=== PATIENT | female | born 1965 | race Caucasian/White ===

== ENCOUNTER 2022-12-17 20:55 | Inpatient (IN) | payer MEDICAID, SELFPAY ==
[2022-12-17] VITALS (13 sets, daily range): BP systolic 118–231; BP diastolic 90–132; PULSE 61–76; RESP 15–16; TEMP 36.4; O2SAT 95–100; BMI 15.0; BMI 14.8
--- NOTE | 2022-12-17 21:11 | PC.NURSE ---
Pt arrived to floor via stretcher @ 2056
--- NOTE | 2022-12-17 21:30 | ECG_ITS ---
APPROVED REPORT Exam: Resting ECG HR:74 bpm ECG Measurements Heart Rate 74 AXES TN 148 P 75 QRSd 84 QRS 69 QT 473 T 101 QTc 501 Conclusion SINUS RHYTHM POSSIBLE LEFT ATRIAL ENLARGEMENT [-0.1mV P-WAVE IN V1/V2] POSSIBLE LEFT VENTRICULAR HYPERTROPHY [VOLTAGE CRITERIA PLUS LAE OR QRS WIDENING] POSSIBLE SEPTAL MYOCARDIAL INFARCTION , OF INDETERMINATE AGE [30 ms Q WAVE IN V1/V2] MODERATE T-WAVE ABNORMALITY, CONSIDER ANTERIOR ISCHEMIA [-0.1+ mV T-WAVE IN V3/V4] ABNORMAL ECG UNCONFIRMED REPORT Electronically signed by : Arden Astudillo MD 12/18/2022 06:44:19
[2022-12-17 22:02] LABS: Basophils % 0.3 % (0.1-2.0); Eosinophils % 0.4 % (0.1-12.0); Hematocrit 36.9 % (37.0-47.0); Hemoglobin 11.6 g/dL (12.2-16.2); Lymphocytes # 0.9 K/mm3 (0.7-4.5); Mean Corpuscular HGB Conc 31.5 g/dL (31.8-35.4); Mean Corpuscular Hemoglobin 32.6 pg (27.0-31.2); Mean Corpuscular Volume 103.6 fl (81-99); Monocytes # 0.2 K/mm3 (0.1-1.0); Monocytes % 2.6 % (1.7-9.3); Neutrophils # 7.6 K/mm3 (1.8-7.8); Neutrophils % 86.7 % (37.0-80.0); Platelet Count 183 K/mm3 (142-424); Red Blood Count 3.56 M/mm3 (4.20-5.40); Red Cell Distribution Width 14.1 % (11.5-17.5); White Blood Count 8.8 K/mm3 (4.8-10.8)
[2022-12-17 22:03] LABS: MANUAL DIFFERENTIAL MANUAL DIFFERENTIAL (MANUAL DIFF)
[2022-12-17 22:15] LABS: Lymphocytes % 7 % (10-50); Neutrophils % 93 % (42-76); Platelet Estimate Normal; RBC Morphology Normal; Total Cells Counted 100
[2022-12-17 22:17] LABS: Alanine Aminotransferase 33 U/L (12-78); Albumin/Globulin Ratio 1.2 (1.1-1.8); Alkaline Phosphatase 145 U/L (38-126); Aspartate Amino Transferase 101 U/L (14-36); Bilirubin,Total 0.5 mg/dl (0.2-1.3); Blood Urea Nitrogen 18 mg/dl (7-17); Calcium 8.8 mg/dl (8.4-10.2); Carbon Dioxide 23 mmol/L (22.0-30.0); Chloride 103 mmol/L (98-107); Estimated Glomerular Filt Rate 86 ml/min (>60); GFR (African American) 104 ML/MIN (>60); Globulin 3.4 g/dL (1.3-3.2); Glucose 178 mg/dl (74-100); Magnesium 1.7 mg/dl (1.6-2.3); Sodium 137 mmol/L (136-145); Total Protein,Serum 7.4 g/dl (6.3-8.2)
[2022-12-17 22:18] LABS: PTT Heparin (inpatient only) 56.4 Seconds (23.6-34.0)
[2022-12-17 22:25] LABS: NT Pro Brain Natriuretic Pep. 1370 pg/mL (0-125)
[2022-12-17 22:31] LABS: Troponin I 3.65 ng/ml (0.00-0.034)
[2022-12-17 22:49] LABS: Coronavirus 19, PCR Not Detected (NotDetected); Influenza A, PCR Not Detected (NotDetected); Influenza B, PCR Not Detected (NotDetected)
--- NOTE | 2022-12-17 22:52 | EXP.HP ---
History of Present Illness *Admission Date: 12/17/22 *Reason for visit:: NSTEMI *History of present illness: 57 year old female who presented to [facility] ED for c/o CP. The pain started @ 245pm. PMHX of CAD, tobacco abuse, hypothyroidism, and COPD. Pt had prior CABG in 2018. Patient states pain started while working today. Pt left work and went to the ED. Pain is described as sharp and started mid chest. Pain radiated to her back between both shoulder blades, down bilateral arms, and up bilateral jaws. Upon the ED workup the patient's BP was 192/105 and her first troponin was 38. The 2hr repeat troponin was 335. BNP was 92 and TSH was 8.20. COVID negative. The patient was started on a nitroglycerin and heparin gtt. [facility] ED physician (Dr. Nunes) called Dr. Nails for transfer of care. Dr. Nails called Dr. Mcclellan and the pt was accepted at [facility] for medical management of NSTEMI with cardiology consult. The patient takes 325 aspirin at home. Pt was given Brilitna 180mg, 40 mg protonix, 20 pepcid, 5 Lopressor, and 25 of metoprolol at [facility] ED. [facility] Disclaimer: The information contained in this section may have been updated after the patient was seen, as this information can be updated by other users. Medical History (Updated 12/17/22 @ 23:40 by MARIE Wilson) COPD (chronic obstructive pulmonary disease) Coronary artery disease involving coronary bypass graft Hemorrhoid History of COVID-19 Hypothyroid Social History (Updated 12/17/22 @ 21:59 by Mini Jackson RN) Smoking Status: Current every day smoker alcohol intake: never current occupational status: employed Travel in the last 8 weeks: None Review of Systems Review of Systems Review of systems:: pertinent systems reviewed and negative unless documented below Constitutional Constitutional: Reports system reviewed and no additional complaints, except as documented Eyes Eyes: Reports system reviewed and no additional complaints, except as documented ENT Ears, Nose, Mouth, and Throat: Reports system reviewed and no additional complaints, except as documented *Cardiovascular Cardiovascular: Reports chest pain and Reports chest pain at rest *Respiratory Respiratory: Reports system reviewed and no additional complaints, except as documented *Gastrointestinal Gastrointestinal: Reports system reviewed and no additional complaints, except as documented *Genitourinary Genitourinary: Reports system reviewed and no additional complaints, except as documented *Musculoskeletal Musculoskeletal: Reports system reviewed and no additional complaints, except as documented Integumentary/Breasts Skin/Breast: Reports system reviewed and no additional complaints, except as documented *Neurologic Neurologic: Reports system reviewed and no additional complaints, except as documented Psychiatric Psychiatric: Reports system reviewed and no additional complaints, except as documented Meds Home Medications and Allergies Home Medications Medication Instructions Recorded Confirmed Type albuterol sulfate 90 mcg/actuation See Rx Instructions .Route 12/17/22 12/17/22 History aerosol inhaler (Ventolin HFA) .COMPLEX COPD aspirin 325 mg tablet 325 mg PO DAILY CAD 12/17/22 12/17/22 History fluticasone 250 mcg-salmeterol 50 See Rx Instructions .Route 12/17/22 12/17/22 History mcg/dose blistr powdr for .COMPLEX COPD inhalation (Advair Diskus) levothyroxine 88 mcg tablet 88 mcg PO DAILY Hypothyroid 12/17/22 12/17/22 History tiotropium bromide 18 mcg capsule See Rx Instructions .Route 12/17/22 12/17/22 History with inhalation device (Spiriva .COMPLEX COPD with HandiHaler) trazodone 150 mg tablet 150 mg PO HS Insomnia 12/17/22 12/17/22 History New Prescriptions to Start Prescriptions: Allergies Allergy/AdvReac Type Severity Reaction Status Date / Time sulfamethoxazole Allergy Verified 12/17/22 22:14 [From Bactrim] trimethoprim [From Bactrim] Miguel Ángel
[2022-12-18] VITALS (24 sets, daily range): BP systolic 112–203; BP diastolic 72–114; PULSE 59–90; RESP 12–20; TEMP 36.6–37.1; O2SAT 96–100; BMI 15.0
[2022-12-18 00:10] LABS: Free T4 (Free Thyroxine) 1.86 ng/dl (0.78-2.19)
--- NOTE | 2022-12-18 03:25 | ECG_ITS ---
APPROVED REPORT Exam: Resting ECG HR:69 bpm ECG Measurements Heart Rate 69 AXES VA 144 P 78 QRSd 78 QRS 68 QT 473 T 102 QTc 492 Conclusion SINUS RHYTHM POSSIBLE LEFT ATRIAL ENLARGEMENT [-0.1mV P-WAVE IN V1/V2] LEFT VENTRICULAR HYPERTROPHY AND ST-T CHANGE [VOLTAGE CRITERIA PLUS ST/T ABNORMALITY] POSSIBLE SEPTAL MYOCARDIAL INFARCTION , OF INDETERMINATE AGE [30 ms Q WAVE IN V1/V2] ABNORMAL ECG UNCONFIRMED REPORT Electronically signed by : Arden Astudillo MD 12/18/2022 06:44:11
[2022-12-18 04:40] LABS: PTT Heparin (inpatient only) 53.8 Seconds (23.6-34.0)
--- NOTE | 2022-12-18 06:01 | XR_ITS ---
PROCEDURE INFORMATION: Exam: XR Chest Exam date and time: 12/18/2022 5:46 AM Age: 57 years old Clinical indication: Pain; Chest pressure; Additional info: Nstemi TECHNIQUE: Imaging protocol: Radiologic exam of the chest. Views: 1 view. COMPARISON: No relevant prior studies available. FINDINGS: Lungs: Opacities in the right perihilar region and medial right base may represent atelectasis or pneumonia.. Pleural spaces: Unremarkable. No pleural effusion. No pneumothorax. Heart/Mediastinum: Unremarkable. No cardiomegaly. Bones/joints: Median sternotomy IMPRESSION: Opacities in the right perihilar region and medial right base may represent atelectasis or pneumonia..
[2022-12-18 07:06] LABS: Chloride 102 mmol/L (98-107); Sodium 136 mmol/L (136-145)
[2022-12-18 07:09] LABS: Blood Urea Nitrogen 16 mg/dl (7-17); Calcium 8.9 mg/dl (8.4-10.2); Carbon Dioxide 25 mmol/L (22.0-30.0); Creatinine Clearance Estimated 53 mL/min (50-200); Estimated Glomerular Filt Rate 86 ml/min (>60); GFR (African American) 104 ML/MIN (>60); Glucose 85 mg/dl (74-100)
[2022-12-18 07:15] LABS: Basophils % 0.2 % (0.1-2.0); Eosinophils # 0.1 K/mm3 (0.0-0.4); Eosinophils % 0.7 % (0.1-12.0); Hematocrit 34.6 % (37.0-47.0); Hemoglobin 11.2 g/dL (12.2-16.2); Lymphocytes # 1.3 K/mm3 (0.7-4.5); Mean Corpuscular HGB Conc 32.3 g/dL (31.8-35.4); Mean Corpuscular Hemoglobin 32.5 pg (27.0-31.2); Mean Corpuscular Volume 100.6 fl (81-99); Monocytes # 0.5 K/mm3 (0.1-1.0); Monocytes % 5.8 % (1.7-9.3); Neutrophils # 6.6 K/mm3 (1.8-7.8); Neutrophils % 78.3 % (37.0-80.0); Platelet Count 187 K/mm3 (142-424); Red Blood Count 3.44 M/mm3 (4.20-5.40); White Blood Count 8.4 K/mm3 (4.8-10.8)
--- NOTE | 2022-12-18 09:01 | HMH.PHAHEP ---
[facility] Heparin Dosing Demographic Data Admission date:: 12/17/22 Date: 12/18/22 Time: 09:01 Allergies Allergy/AdvReac Type Severity Reaction Status Date / Time sulfamethoxazole Allergy Verified 12/17/22 22:14 [From Bactrim] trimethoprim [From Bactrim] Allergy Verified 12/17/22 22:14 Height: 1.6 m Weight: 38.584 kg Indication Medication therapy:: Heparin Current Indications:: NSTEMI (LOW-DOSE PROTOCOL) Current Active Problems (Updated 12/19/22 @ 09:39 by Belinda Rodas APRN) Hyperlipidemia (Acute) HTN (hypertension) (Acute) Tobacco abuse (Acute) NSTEMI (non-ST elevated myocardial infarction) (Acute) Hypothyroid (Acute) Coronary artery disease involving coronary bypass graft (Acute) COPD (chronic obstructive pulmonary disease) (Acute) CVA?: No Bleeding problem?: No Kidney disease?: No UT?: Yes Additional History:: NSTEMI, HYPOTHYROID, CAD WITH CABG, COPD Desired PTT range:: 50-75 seconds Labs Anticoagulation Lab Results:: 12/17/22 12/18/22 21:55 06:44 Hgb 11.6 L 11.2 L Hct 36.9 L 34.6 L Plt Count 183 187 Monitoring Dose Monitor 1: Date: 12/17/22 Time: 22:49 PTT Result:: 56.4 SECONDS (TRANSFERRED FROM [facility] ON HEPARIN) Infusion Rate:: FERCHO STARTED HEPARIN DRIP AT 500 UNITS/HOUR = 10 ML/HOUR AND GAVE ONE TIME HEPARIN IV BOLUS OF 2500 UNITS. Dose Monitor 2: Date: 12/18/22 Time: 04:25 PTT Result:: 53.8 SECONDS Infusion Rate:: CONTINUE CURRENT HEPARIN DRIP RATE OF 500 UNITS/HOUR = 10 ML/HOUR Dose Monitor 3: Date: 12/18/22 Time: 11:00 PTT Result:: 34.6 SECONDS Infusion Rate:: INCREASE HEPARIN DRIP RATE TO 650 UNITS/HOUR = 13 ML/HOUR AND BOLUS 4000 UNITS HEPARIN IV ONCE. Dose Monitor 4: Date: 12/18/22 Time: 18:00 PTT Result:: 64.4 SECONDS Infusion Rate:: FERCHO CONTINUED CURRENT HEPARIN DRIP RATE OF 650 UNITS/HOUR = 13 ML/HOUR. Dose Monitor 5: Date: 12/19/22 Time: 00:00 PTT Result:: 43.6 SECONDS Infusion Rate:: FERCHO INCREASED HEPARIN DRIP RATE TO 750 UNITS/HOUR = 15 ML/HOUR AND BOLUSED 3000 UNITS HEPARIN IV ONCE. Dose Monitor 6: Date: 12/19/22 Time: 07:32 PTT Result:: 68.3 SECONDS Infusion Rate:: CONTINUE CURRENT RATE OF 750 UNITS/HOUR = 15 ML/HOUR Comment:: PATIENT TAKEN TO PRODUCTION EDITOR AND DRIP STOPPED SHORTLY AFTER. Core Measures Is INR > or = 2 at discharge?: No Most Recent Labs:: Laboratory Results - last 24 hr 12/17/22 21:55: WBC 8.8, RBC 3.56 L, Hgb 11.6 L, Hct 36.9 L, MCV 103.6 H, MCH 32.6 H, MCHC 31.5 L, RDW 14.1, Plt Count 183, MPV 9.0, Neut % (Auto) 86.7 H, Lymph % (Auto) 10.0, Bureau % (Auto) 2.6, Eos % (Auto) 0.4, Baso % (Auto) 0.3, Neut # (Auto) 7.6, Lymph # (Auto) 0.9, Bureau # (Auto) 0.2, Eos # (Auto) 0.0, Baso # (Auto) 0.0, Total Counted 100, Neutrophils % (Manual) 93 H, Lymphocytes % (Manual) 7 L, Platelet Estimate Normal, RBC Morphology Normal 12/17/22 21:55: Sodium 137, Potassium 4.0, Chloride 103, Carbon Dioxide 23, Anion Gap 15.0, BUN 18 H, Creatinine 0.70, Estimated GFR 86, Est GFR ( Amer) 104, Glucose 178 H, Calcium 8.8, Magnesium 1.7, Total Bilirubin 0.5, AST 101 H, ALT 33, Alkaline Phosphatase 145 H, Troponin I 3.65 H, Total Protein 7.4, Albumin 4.0, Globulin 3.4 H, Albumin/Globulin Ratio 1.2, TSH 10.40 H 12/17/22 21:55: APTT 56.4 H* 12/17/22 21:55: NT-Pro-B Natriuret Pep 1370 H 12/17/22 21:55: Free T4 1.86 12/17/22 22:12: SARS-CoV-2 (PCR) Not detected, Influenza A Untype (PCR) Not detected, Influenza Type B (PCR) Not detected 12/18/22 01:05: Troponin I 18.90 H 12/18/22 04:25: APTT 53.8 H* 12/18/22 06:44: WBC 8.4, RBC 3.44 L, Hgb 11.2 L, Hct 34.6 L, MCV 100.6 H, MCH 32.5 H, MCHC 32.3, RDW 14.0, Plt Count 187, MPV 9.0, Neut % (Auto) 78.3, Lymph % (Auto) 15.0, Bureau % (Auto) 5.8, Eos % (Auto) 0.7, Baso % (Auto) 0.2, Neut # (Auto) 6.6, Lymph # (Auto) 1.3, Bureau # (Auto) 0.5, Eos # (Auto
--- NOTE | 2022-12-18 09:59 | HMH.PHAINT1 ---
Pharmacy Intervention Comments: MEDICATION RECONCILIATION COMPLETE USING EXTERNAL PHARMACY FILL HISTORY.
--- NOTE | 2022-12-18 10:26 | EXP.ACUTE.PN ---
Subjective *Date: 12/18/22 *Time: 10:26 Interval history: Family at bedside. Complains of neck pain and mild chest pain. Old pneumonia showing on CT scan. Medical Exam Vital signs and Labs for Last 24 Hours: Vital Signs Temp Pulse Pulse Resp BP Pulse Ox FiO2 12/18/22 08:00 82 12/18/22 08:00 82 20 163/94 H 97 12/18/22 07:27 98.6 F 12/18/22 06:36 70 14 124/73 97 12/18/22 06:00 74 15 132/81 97 12/18/22 05:33 70 14 140/78 96 12/18/22 05:18 85 15 137/81 96 12/18/22 05:07 71 16 153/86 H 97 12/18/22 04:48 79 16 154/84 H 99 12/18/22 04:00 63 12/18/22 04:00 63 12/18/22 04:00 98.6 F 70 15 165/86 H 98 12/18/22 03:08 68 16 193/114 H 99 12/18/22 02:47 61 12 185/96 H 99 12/18/22 02:00 67 14 203/108 H 98 2 12/18/22 01:32 68 13 188/103 H 98 12/18/22 00:45 59 L 14 149/87 H 98 12/18/22 00:00 63 12/17/22 21:20 63 12/18/22 00:00 63 12/17/22 21:19 74 12/18/22 00:00 70 14 177/100 H 98 12/17/22 23:45 97.6 F 61 15 162/90 H 96 12/17/22 23:30 64 174/90 H 97 12/17/22 23:15 71 182/108 H 97 12/17/22 23:00 65 177/94 H 96 12/17/22 22:45 68 195/106 H 96 12/17/22 22:30 72 206/112 H 97 12/17/22 22:15 76 219/126 H 97 12/17/22 22:00 76 231/132 H 99 12/17/22 21:45 72 156/102 H 100 12/17/22 21:30 75 16 191/122 H 97 12/17/22 21:18 74 16 118/108 H 95 12/17/22 21:30 97 Intake and Output 12/17/22 12/18/22 12/18/22 23:59 07:59 15:59 Intake Total 9.675 / 9.675 162.675 / 162.675 Output Total 300 / 300 Balance 9.675 / 9.675 -137.325 / -137.325 Intake: Intake, Oral Amount 0 / 0 Intake, Total IV Amount 9.675 / 9.675 162.675 / 162.675 Heparin Sodium,Porcine/D5w 500 43 / 43 ml @ 500 UNITS/HR 10 mls/hr IV .Q25H [facility] Rx#:[id number] Nitroglycerin in 5 % Dextrose 53 / 53 250 ml @ 5 MCG/MIN 1.5 mls/hr IV .Q24H [facility] Rx#:[id number] Output: Output, Urine Amount 300 / 300 Other: Number of Voids 1 Number of Unmeasured Voids 1 Weight 38 kg 38.584 kg 38.584 kg Patient Weight 12/18/22 23:59 Weight 38.584 kg Laboratory Results - last 24 hr 12/17/22 21:55: WBC 8.8, RBC 3.56 L, Hgb 11.6 L, Hct 36.9 L, MCV 103.6 H, MCH 32.6 H, MCHC 31.5 L, RDW 14.1, Plt Count 183, MPV 9.0, Neut % (Auto) 86.7 H, Lymph % (Auto) 10.0, Nance % (Auto) 2.6, Eos % (Auto) 0.4, Baso % (Auto) 0.3, Neut # (Auto) 7.6, Lymph # (Auto) 0.9, Nance # (Auto) 0.2, Eos # (Auto) 0.0, Baso # (Auto) 0.0, Total Counted 100, Neutrophils % (Manual) 93 H, Lymphocytes % (Manual) 7 L, Platelet Estimate Normal, RBC Morphology Normal 12/17/22 21:55: Sodium 137, Potassium 4.0, Chloride 103, Carbon Dioxide 23, Anion Gap 15.0, BUN 18 H, Creatinine 0.70, Estimated GFR 86, Est GFR ( Amer) 104, Glucose 178 H, Calcium 8.8, Magnesium 1.7, Total Bilirubin 0.5, AST 101 H, ALT 33, Alkaline Phosphatase 145 H, Troponin I 3.65 H, Total Protein 7.4, Albumin 4.0, Globulin 3.4 H, Albumin/Globulin Ratio 1.2, TSH 10.40 H 12/17/22 21:55: APTT 56.4 H* 12/17/22 21:55: NT-Pro-B Natriuret Pep 1370 H 12/17/22 21:55: Free T4 1.86 12/17/22 22:12: SARS-CoV-2 (PCR) Not detected, Influenza A Untype (PCR) Not detected, Influenza Type B (PCR) Not detected 12/18/22 01:05: Troponin I 18.90 H 12/18/22 04:25: APTT 53.8 H* 12/18/22 06:44: WBC 8.4, RBC 3.44 L, Hgb 11.2 L, Hct 34.6 L, MCV 100.6 H, MCH 32.5 H, MCHC 32.3, RDW 14.0, Plt Count 187, MPV 9.0, Neut % (Auto) 78.3, Lymph % (Auto) 15.0, Nance % (Auto) 5.8, Eos % (Auto) 0.7, Baso % (Auto) 0.2, Neut # (Auto) 6.6, Lymph # (Auto) 1.3, Nance # (Auto) 0.5, Eos # (Auto) 0.1, Baso # (Auto) 0.0 12/18/22 06:44: Sodium 136, Potassium 4.0, Chloride 102, Carbon Dioxide 25, Anion Gap 13.0, BUN 16, Creatinine 0.70, Estimated Creat Clear 53, Estimated GFR 86, Est GFR ( Amer) 104, Gluc
[2022-12-18 11:53] LABS: PTT Heparin (inpatient only) 34.6 Seconds (23.6-34.0)
--- NOTE | 2022-12-18 16:13 | PC.NURSE ---
PT IS RESTING IN BED. ALERT AND ORIENTED X4. CARDENE DRIP WAS TITRATED FROM 5 MG TO 7.5 MG THIS MORNING AT 0800. PT'S BP AT 0800 WAS 163/94. DRIP WAS TITRATED TO 5 MG/HR AT 1430. BP AT 1430 WAS 116/71. PT HAD A ONE TIME DOSE OF BISOPROLOL 10 MG THIS AFTERNOON ORDERED PER . DRIP TITRATED TO 2.5 MG/HR AT 1400. BP 128/73. O2 SATURATION HAS MAINTAINED 90-94% ON 2 L NC. LUNG SOUNDS DIMINISHED WITH SCATTERED WHEEZES. WILL CONTINUE TO MONITOR.
--- NOTE | 2022-12-18 18:10 | PC.WOUNDNOTE ---
1715 BP 118/78. OLINDA STOPPED PER HOSPITALIST.
[2022-12-18 18:20] LABS: PTT Heparin (inpatient only) 64.4 Seconds (23.6-34.0)
[2022-12-19] VITALS (52 sets, daily range): BP systolic 104–178; BP diastolic 61–103; PULSE 57–100; RESP 16–20; TEMP 36.6–37.9; O2SAT 92–99; BMI 15.0
[2022-12-19 00:41] LABS: PTT Heparin (inpatient only) 43.6 Seconds (23.6-34.0)
[2022-12-19 06:15] LABS: Basophils % 0.2 % (0.1-2.0); Eosinophils % 0.5 % (0.1-12.0); Hematocrit 36.4 % (37.0-47.0); Hemoglobin 11.8 g/dL (12.2-16.2); Lymphocytes # 1.6 K/mm3 (0.7-4.5); Lymphocytes % 23.1 % (10-50); Mean Corpuscular HGB Conc 32.3 g/dL (31.8-35.4); Mean Corpuscular Hemoglobin 33.2 pg (27.0-31.2); Mean Corpuscular Volume 102.9 fl (81-99); Monocytes # 0.5 K/mm3 (0.1-1.0); Monocytes % 6.8 % (1.7-9.3); Neutrophils # 4.8 K/mm3 (1.8-7.8); Neutrophils % 69.4 % (37.0-80.0); Platelet Count 191 K/mm3 (142-424); Red Blood Count 3.54 M/mm3 (4.20-5.40); White Blood Count 6.9 K/mm3 (4.8-10.8)
[2022-12-19 06:24] LABS: Chloride 100 mmol/L (98-107); Potassium 3.5 mmoL/L (3.5-5.1); Sodium 135 mmol/L (136-145)
[2022-12-19 06:27] LABS: Anion Gap 13.5 mEq/L (5-15); Blood Urea Nitrogen 14 mg/dl (7-17); Calcium 9.2 mg/dl (8.4-10.2); Carbon Dioxide 25 mmol/L (22.0-30.0); Creatinine Clearance Estimated 53 mL/min (50-200); Estimated Glomerular Filt Rate 86 ml/min (>60); GFR (African American) 104 ML/MIN (>60); Glucose 90 mg/dl (74-100)
[2022-12-19 07:59] LABS: PTT Heparin (inpatient only) 68.3 Seconds (23.6-34.0)
--- NOTE | 2022-12-19 08:20 | IR_ITS ---
APPROVED REPORT Patient Location: Inpatient PROCEDURES Left heart catheterization Left ventriculogram Selective coronary angiogram Selective engagement of the left internal mammary artery Bilateral selective renal angiogram Bare-metal stent deployment to the ostial proximal right renal artery INDICATION Acute non-ST elevation myocardial infarction, Coronary artery disease, History of coronary bypass surgery, Malignant hypertension, Renovascular hypertension, Renal artery stenosis Informed consent was obtained prior to the procedure. COMPLICATIONS None Estimated Blood Loss: Less than 10 ML TECHNIQUE 1% lidocaine used anesthetize the right groin the right femoral artery was accessed via the Salinger technique and a 5 Bolivian sheath was placed in the right femoral artery. A JL 4 JR 4 catheter used to perform left heart catheterization left ventriculogram selective core angiography as well as selective engage in the left internal mammary artery. The JR4 catheter was used to perform bilateral selective renal angiography. Because of patient's malignant hypertension Takotsubo cardiomyopathy and severe right renal artery stenosis the 5 Bolivian sheath was exchanged for a 6 Bolivian sheath and therapeutic heparin was administered giving a therapeutic ACT. A JR4 guide catheter was used to intubate the right renal artery followed by Choice PT extra-support wire. A 6 mm x 18 mm Herculink stent was deployed in the ostial proximal right renal artery at 15 vikram reducing the severe stenosis to 0%. After achieving excellent angiograph results the apparatus was removed the sheath was left in place patient was transferred to the postop putting in stable addition for sheath removal ANGIOGRAPHIC RESULTS The left main artery Normal The left anterior descending artery Is proximally patent has a stent in the mid segment which is completely occluded. The circumflex artery Is a large dominant vessel has proximal 50% stenosis with a mid vessel concentric 50 to 60% stenosis and a 2.5 to 2.75 mm vessel The right coronary artery Is nondominant and has a proximal 90% stenosis with mid vessel 50% stenosis and a distal long 70% stenosis. The PETERSON ventriculogram reveals Anterior basal hypokinesis with estimated ejection fraction of 40 The left ventricular end-diastolic pressure 10 mmHg NATHAN to LAD widely patent Left renal artery singular and has a proximal and mid vessel 30% stenosis Right renal artery singular and has an ostial proximal complex 80% stenosis IMPRESSION Acute non-ST elevation myocardial infarction consistent with stress cardiomyopathy/Takotsubo cardiomyopathy Chronically occluded mid LAD Widely patent NATHAN to the mid to distal LAD Persistent moderate to severe stenosis in the proximal to mid dominant circumflex artery Persistent severe stenosis in the proximal and distal nondominant right coronary artery Reduced ejection fraction with likely resolving anterior wall motion abnormality from stress cardiomyopathy Severe right renal artery stenosis Malignant hypertension precipitated by renovascular hypertension which likely induced the stress cardiomyopathy/taxable cardiomyopathy Successful stenting of the right renal artery severe disease reduced to 0% with 1 bare-metal stent PLAN 1. Plavix 300 mg now followed by 75 mg daily 2. Aspirin 81 mg daily 3. At this point I am in favor of treating both the circumflex artery and the right coronary artery medically with aggressive risk factor modification. Patient already has experienced an occlusion of stent in the mid LAD and may not respond well to drug-eluting stents. I believe medical management is most warranted and will be most advantageous to patien
--- NOTE | 2022-12-19 08:46 | PC.NURSE ---
Spoke with pharmacy. No changes to Heparin gtt at this time.
--- NOTE | 2022-12-19 09:34 | EXP.CARD.CON ---
History of Present Illness History of Present Illness Consult date: 12/19/22 Requesting physician: Harinder Mcclellan Consult reason: chest pain Chief complaint: NSTEMI History of present illness: 57-year-old white female with past medical history of coronary artery disease including stenting in 2014 and bypass in 2018 at [facility], half a pack per day smoker greater than 20 years and hypertension presented to [facility] as a transfer from [facility] for NSTEMI. Patient reports that she was at work on Monday when she developed midsternal chest pressure radiating into back, bilateral arms and neck associated with nausea, diaphoresis, and shortness of breath. Patient went to [facility] emergency department and had elevated troponins noted. Patient was transferred to [facility] for cardiology evaluation for NSTEMI. Initial troponin at this facility was 3.65 which elevated to 18.9. Other significant labs as follow: RBC 3.54, hemoglobin 11.8, sodium 135, potassium 3.5, creatinine 0.7. Chest x-ray shows opacities in the right perihilar region and medial right base which may represent atelectasis or pneumonia. Upon presentation to [facility] systolic blood pressure was noted to be in the 200s and patient was placed on nicardipine drip. Systolic pressures now in the 130s. Patient denies chest pain at this time. Patient reports having episodes of intermittent chest pain at rest for the last few months. Echo pending. [facility] Disclaimer: The information contained in this section may have been updated after the patient was seen, as this information can be updated by other users. Medical History (Updated 12/19/22 @ 09:39 by Belinda Rodas APRN) COPD (chronic obstructive pulmonary disease) Coronary artery disease involving coronary bypass graft Hemorrhoid History of COVID-19 Hypothyroid Social History (Updated 12/17/22 @ 21:59 by Mini Jackson RN) Smoking Status: Current every day smoker alcohol intake: never current occupational status: employed Travel in the last 8 weeks: None Review of Systems Review of Systems Review of systems:: pertinent systems reviewed and negative unless documented below *Cardiovascular Cardiovascular: Reports chest pain, Reports diaphoresis and Reports dyspnea *Respiratory Respiratory: Reports dyspnea *Neurologic Neurologic: Reports system reviewed and no additional complaints, except as documented Exam Data for Last 24 hours Vital signs and Labs for Last 24 Hours: Temp Pulse Resp BP Pulse Ox FiO2 99.1 F 70 20 133/88 95 2 12/19/22 07:28 12/19/22 08:00 12/19/22 06:00 12/19/22 06:00 12/19/22 06:00 12/18/22 02:00 Laboratory Results - last 24 hr 12/18/22 11:05: APTT 34.6 H 12/18/22 17:55: APTT 64.4 H* 12/19/22 00:20: APTT 43.6 H 12/19/22 05:35: WBC 6.9, RBC 3.54 L, Hgb 11.8 L, Hct 36.4 L, MCV 102.9 H, MCH 33.2 H, MCHC 32.3, RDW 14.0, Plt Count 191, MPV 9.0, Neut % (Auto) 69.4, Lymph % (Auto) 23.1, Ector % (Auto) 6.8, Eos % (Auto) 0.5, Baso % (Auto) 0.2, Neut # (Auto) 4.8, Lymph # (Auto) 1.6, Ector # (Auto) 0.5, Eos # (Auto) 0.0, Baso # (Auto) 0.0 12/19/22 05:35: Sodium 135 L, Potassium 3.5, Chloride 100, Carbon Dioxide 25, Anion Gap 13.5, BUN 14, Creatinine 0.70, Estimated Creat Clear 53, Estimated GFR 86, Est GFR ( Amer) 104, Glucose 90, Calcium 9.2 12/19/22 07:32: APTT 68.3 H* I & O for Last 24 hours: Intake & Output 12/16/22 12/17/22 12/18/22 12/19/22 23:59 23:59 23:59 23:59 Intake Total 9.675 / 9.675 1098.675 / 1259.675 161 / 161 Output Total 300 / 300 0 / 0 Balance 9.675 / 9.675 798.675 / 089.675 161 / 161 Weight 83 lb 12.41 oz 85 lb 1.01 oz 85 lb Constitutional Constitutional: no acute distress *Routine Respiratory Exam Respiratory: Present CTA bilaterally and symmetric chest movement *Routine Cardiovascular Exam Cardiovascular: Present RRR, Normal S1 and Normal S2 *Routine Abdomina
--- NOTE | 2022-12-19 12:20 | PC.NURSE ---
Pt going to cathode builder.
[2022-12-19 13:11] LABS: CATHL Activated Clotting Time 280 SEC (74-125)
--- NOTE | 2022-12-19 16:05 | PC.NURSE ---
Cath site C/D/I. No bleeding or hematoma. Pt is 1:1 at this time due to bleeding risks. VSS currently.
--- NOTE | 2022-12-19 17:31 | EXP.ACUTE.PN ---
Subjective *Date: 12/19/22 *Time: 17:31 Interval history: Continue with chest pain, generally weak. Medical Exam Vital signs and Labs for Last 24 Hours: Vital Signs Temp Pulse Pulse Resp BP Pulse Ox 12/19/22 17:00 68 16 145/79 H 95 12/19/22 16:00 70 12/19/22 16:30 68 17 157/84 H 97 12/19/22 16:15 69 17 144/82 H 97 12/19/22 16:00 74 16 156/90 H 97 12/19/22 15:45 98.5 F 72 16 150/91 H 96 12/19/22 15:30 74 19 162/91 H 97 12/19/22 15:25 70 19 162/89 H 96 12/19/22 15:15 75 19 149/91 H 96 12/19/22 15:12 74 19 163/99 H 99 12/19/22 15:09 77 19 167/96 H 97 12/19/22 15:06 73 18 161/94 H 97 12/19/22 15:03 76 18 161/94 H 95 12/19/22 15:00 74 17 165/97 H 96 12/19/22 14:57 75 19 167/96 H 95 12/19/22 14:54 77 19 159/93 H 95 12/19/22 14:51 78 19 163/99 H 96 12/19/22 14:48 79 18 172/99 H 99 12/19/22 14:45 80 19 178/103 H 95 12/19/22 14:42 81 18 172/101 H 96 12/19/22 14:39 79 19 172/96 H 97 12/19/22 14:21 76 18 158/91 H 97 12/19/22 14:06 72 17 156/86 H 96 12/19/22 14:03 75 18 144/85 H 97 12/19/22 14:15 76 17 161/92 H 95 12/19/22 14:12 72 18 155/92 H 95 12/19/22 15:20 74 19 162/86 H 96 12/19/22 14:33 77 18 176/90 H 95 12/19/22 14:30 74 18 160/93 H 98 12/19/22 14:27 77 18 163/89 H 96 12/19/22 14:24 73 18 156/92 H 95 12/19/22 14:23 76 12/19/22 14:18 74 18 162/94 H 96 12/19/22 14:09 73 18 156/86 H 96 12/19/22 14:00 72 18 156/86 H 97 12/19/22 12:00 60 12/19/22 12:00 69 20 106/61 L 95 12/19/22 11:19 98.6 F 12/19/22 10:00 79 20 123/78 96 12/19/22 08:00 65 20 117/63 92 L 12/19/22 08:00 70 12/19/22 07:28 99.1 F 12/19/22 06:00 96 H 20 133/88 95 12/19/22 04:00 80 12/19/22 04:00 99.5 F 85 20 126/83 94 L 12/19/22 02:00 80 18 133/76 94 L 12/19/22 00:00 100 H 12/19/22 00:00 100.2 F H 93 H 20 143/83 H 95 12/18/22 20:00 90 12/18/22 22:00 88 20 136/72 99 12/18/22 20:00 98.8 F 88 16 143/94 H 100 12/18/22 20:00 100 12/18/22 18:00 79 18 147/88 H 99 Intake and Output 12/19/22 12/19/22 12/19/22 07:59 15:59 23:59 Intake Total 161 / 241 80 / 241 Output Total 0 / 0 0 / 0 Balance 161 / 241 80 / 241 Intake: Intake, Oral Amount 0 / 0 0 / 0 Intake, Total IV Amount 161 / 241 80 / 241 Heparin Sodium,Porcine/D5w 500 161 / 241 80 / 241 ml @ 650 UNITS/HR 13 mls/hr IV .Q25H [facility] Rx#:[id number] Output: Output, Urine Amount 0 / 0 0 / 0 Other: Number of Unmeasured Voids 1 3 Weight 38.555 kg Patient Weight 12/19/22 23:59 Weight 38.555 kg Laboratory Results - last 24 hr 12/18/22 17:55: APTT 64.4 H* 12/19/22 00:20: APTT 43.6 H 12/19/22 05:35: WBC 6.9, RBC 3.54 L, Hgb 11.8 L, Hct 36.4 L, MCV 102.9 H, MCH 33.2 H, MCHC 32.3, RDW 14.0, Plt Count 191, MPV 9.0, Neut % (Auto) 69.4, Lymph % (Auto) 23.1, [place] % (Auto) 6.8, Eos % (Auto) 0.5, Baso % (Auto) 0.2, Neut # (Auto) 4.8, Lymph # (Auto) 1.6, [place] # (Auto) 0.5, Eos # (Auto) 0.0, Baso # (Auto) 0.0 12/19/22 05:35: Sodium 135 L, Potassium 3.5, Chloride 100, Carbon Dioxide 25, Anion Gap 13.5, BUN 14, Creatinine 0.70, Estimated Creat Clear 53, Estimated GFR 86, Est GFR ( Amer) 104, Glucose 90, Calcium 9.2 12/19/22 07:32: APTT 68.3 H* 12/19/22 12:35: Activated Clotting Time 280 H* I & O for Labs for Last 24 Hours: Intake & Output 12/16/22 12/17/22 12/18/22 12/19/22 23:59 23:59 23:59 23:59 Intake Total 9.675 / 9.675 1098.675 / 1259.675 241 / 241 Output Total 300 / 300 0 / 0 Balance 9.675 / 9.675 798.675 / 959.675 241 / 241 Weight 38 kg 38.584 kg 38.555 kg Head: Present atraumatic and normocephalic ENT: Present normal exam Neck: Present normal inspection and trachea midline Respiratory: Pre
--- NOTE | 2022-12-19 18:13 | PC.NURSE ---
Per MD Rodriguez, Pt may come out of SD @ 0105. 12 hrs of 1:1 observation will be complete.
--- NOTE | 2022-12-19 21:17 | PC.NURSE ---
Patient head of bed lifted to 15 degrees at 2114. patient tolerating it, dressing remains clean, dry and intact. no signs of bleeding.
--- NOTE | 2022-12-19 22:00 | PC.NURSE ---
Patient sitting up at 45 degrees in the bed. No complaints. Dressing still clean dry and intact, no signs of bleeding.
[2022-12-20] VITALS: PULSE 79
--- NOTE | 2022-12-20 01:24 | PC.NURSE ---
Patient is out of the 12hr 1 on 1 observations. Dressing is clean, dry and intact. no sign of bleeding noted. patient has no complaints.
[2022-12-20 04:00] VITALS: PULSE 57; TEMP 36.8; BMI 15.7
--- NOTE | 2022-12-20 05:26 | PC.NURSE ---
Patient has rested most of the night. Dressing on right groin is still clean dry and intact. no other issues noted by patient.
[2022-12-20 07:59] VITALS: BP 135/72; PULSE 73; RESP 20; TEMP 36.8; O2SAT 96
[2022-12-20 08:00] VITALS: PULSE 70; O2SAT 96
[2022-12-20 09:26] LABS: Basophils % 0.2 % (0.1-2.0); Eosinophils # 0.1 K/mm3 (0.0-0.4); Eosinophils % 1.1 % (0.1-12.0); Hematocrit 37.3 % (37.0-47.0); Lymphocytes # 1.2 K/mm3 (0.7-4.5); Lymphocytes % 17.5 % (10-50); Mean Corpuscular HGB Conc 32.3 g/dL (31.8-35.4); Mean Corpuscular Hemoglobin 32.9 pg (27.0-31.2); Mean Corpuscular Volume 101.9 fl (81-99); Mean Platelet Volume 8.9 fl (7.4-10.4); Monocytes # 0.5 K/mm3 (0.1-1.0); Monocytes % 7.2 % (1.7-9.3); Platelet Count 175 K/mm3 (142-424); Red Blood Count 3.66 M/mm3 (4.20-5.40); Red Cell Distribution Width 13.8 % (11.5-17.5); White Blood Count 6.8 K/mm3 (4.8-10.8)
[2022-12-20 09:44] LABS: Chloride 103 mmol/L (98-107); Potassium 3.4 mmoL/L (3.5-5.1); Sodium 137 mmol/L (136-145)
[2022-12-20 09:46] LABS: Alanine Aminotransferase 30 U/L (12-78); Alkaline Phosphatase 88 U/L (38-126); Aspartate Amino Transferase 84 U/L (14-36); Bilirubin,Total 0.3 mg/dl (0.2-1.3); Blood Urea Nitrogen 17 mg/dl (7-17); Creatinine Clearance Estimated 56 mL/min (50-200); Estimated Glomerular Filt Rate 86 ml/min (>60); GFR (African American) 104 ML/MIN (>60)
[2022-12-20 09:47] LABS: Albumin Level 3.7 g/dl (3.5-5.0); Albumin/Globulin Ratio 1.1 (1.1-1.8); Anion Gap 11.4 mEq/L (5-15); Calcium 8.7 mg/dl (8.4-10.2); Carbon Dioxide 26 mmol/L (22.0-30.0); Globulin 3.5 g/dL (1.3-3.2); Glucose 103 mg/dl (74-100); Total Protein,Serum 7.2 g/dl (6.3-8.2)
--- NOTE | 2022-12-20 10:55 | EXP.DC.SUM ---
General Admission date:: 12/17/22 Discharge date: 12/20/22 HPI HPI HPI: 57 year old female who presented to [facility] ED for c/o CP. The pain started @ 245pm. PMHX of CAD, tobacco abuse, hypothyroidism, and COPD. Pt had prior CABG in 2018. Patient states pain started while working today. Pt left work and went to the ED. Pain is described as sharp and started mid chest. Pain radiated to her back between both shoulder blades, down bilateral arms, and up bilateral jaws. Upon the ED workup the patient's BP was 192/105 and her first troponin was 38. The 2hr repeat troponin was 335. BNP was 92 and TSH was 8.20. COVID negative. The patient was started on a nitroglycerin and heparin gtt. [facility] ED physician (Dr. Nunes) called Dr. Nails for transfer of care. Dr. Nails called Dr. Mcclellan and the pt was accepted at [facility] for medical management of NSTEMI with cardiology consult. The patient takes 325 aspirin at home. Pt was given Brilitna 180mg, 40 mg protonix, 20 pepcid, 5 Lopressor, and 25 of metoprolol at [facility] ED. Hospital Course Hospital Course Hospital Course: 57 year old female who presented to [facility] ED for c/o CP. The pain started @ 245pm. Patient states pain started while working today.? Pt left work and went to the ED. Patient was increased with Lovenox concern for NSTEMI. Transferred to [facility] for further management. Cardiology consulted. Problems addressed as follows: NSTEMI CAD Unstable angina CCS 3 Takotsubo cardiomyopathy Hypertensive urgency Hyperlipidemia Renal artery stenosis -Patient was transferred to [facility] from [facility]. Cardiology was consulted. Serial troponins obtained, elevated to 18.9. Initially on a Cardene drip for hypertensive urgency. EKG with normal sinus rhythm. History of bypass surgery in 2018 with an stenting in 2013. Taken for left heart cath. Echocardiogram obtained showing EF of 50 to 55% with mild AR, left heart cath showed stress cardiomyopathy. Had a chronically occluded mild mid LAD. Widely patent NATHAN. No stenting of coronary arteries. Noted to have severe right renal artery stenosis however requiring stenting. Likely culprit in her hypertension. Patient stable for discharge home after monitoring overnight. Plan to continue aspirin 81 mg daily, bisoprolol 10 mg daily, Lipitor 80 mg daily. Initiated on losartan 25 mg daily and plavix 75mg daily due to stent deployment. Blood pressure improved after stenting of renal artery. Close follow-up with cardiology in the outpatient setting COPD --PRN Ipratropium/albuterol ordered PRN q 6 hr as needed. -oxygen as needed to keep sats above 92%, no requirement during admission Hypothyroid -TSH 8.2 on admission, continue levothyroxine 88 mcg daily Tobacco abuse -Nicotine patch PRN during admission. Provide smoking cessation At home. Close follow-up as an outpatient. Exam Data for Last 24 hours Vital signs and Labs for Last 24 Hours: Temp Pulse Resp BP Pulse Ox FiO2 98.3 F 70 20 135/72 96 2 12/20/22 07:59 12/20/22 08:00 12/20/22 07:59 12/20/22 07:59 12/20/22 08:00 12/18/22 02:00 Laboratory Results - last 24 hr 12/19/22 12:35: Activated Clotting Time 280 H* 12/20/22 09:15: WBC 6.8, RBC 3.66 L, Hgb 12.0 L, Hct 37.3, MCV 101.9 H, MCH 32.9 H, MCHC 32.3, RDW 13.8, Plt Count 175, MPV 8.9, Neut % (Auto) 74.0, Lymph % (Auto) 17.5, [place] % (Auto) 7.2, Eos % (Auto) 1.1, Baso % (Auto) 0.2, Neut # (Auto) 5.0, Lymph # (Auto) 1.2, [place] # (Auto) 0.5, Eos # (Auto) 0.1, Baso # (Auto) 0.0 12/20/22 09:15: Sodium 137, Potassium 3.4 L, Chloride 103, Carbon Dioxide 26, Anion Gap 11.4, BUN 17, Creatinine 0.70, Estimated Creat Clear 56, Estimated GFR 86, Est GFR ( Amer) 104, Glucose 103 H, Calcium 8.7, Total Bilirubin 0.3, AST 84 H, ALT 30, Alkaline Phosphatase 88, Total Protein 7.2, Albumin 3.7, Globulin 3.5 H, Albumin/Globulin Ratio 1.1 I & O for Last 24 hours: Intake & Output 12/17/22 12/18/22 12/19/22 0
--- NOTE | 2022-12-20 11:02 | EXP.CARD.PN ---
Subjective Subjective Date: 12/20/22 Time: 08:30 Principal diagnosis: htn, nstemi, renal artery stenosis Interval history: Doing well this am, denies chest pain or soa. Right groin site looks good, no swelling/redness/warmth/bleeding. BP /135/72. Official echo read shows EF 50-55 with mild AR. 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 Plavix 300 mg now followed by 75 mg daily 2. Aspirin 81 mg daily 3. At this point I am in favor of treating both the circumflex artery and the right coronary artery medically with aggressive risk factor modification.? Patient already has experienced an occlusion of stent in the mid LAD and may not respond well to drug-eluting stents.? I believe medical management is most warranted and will be most advantageous to patient 4. LDL less than 55 to be achieved with high intensity statin 5. Continue bisoprolol 10 mg daily 6. Cardiac rehabilitation 7. Obtain an official echocardiogram to make sure ejection fraction is greater than 35%.? If ejection fraction is greater than 35% patient does not warrant a LifeVest.? If ejection fraction is 35% or less consider LifeVest 8. Given patient's 38 kg body habitus she is at increased risk for bleeding.? I would like for patient to have one-on-one nursing for at least the next 12 hours with close observation of the right groin.? Patient is not a candidate for any type of vascular closure device 9. If necessary transfer patient to the intensive care unit for one-on-one nursing Exam Data for Last 24 hours Vital signs and Labs for Last 24 Hours: Temp Pulse Resp BP Pulse Ox FiO2 98.3 F 70 20 135/72 96 2 12/20/22 07:59 12/20/22 08:00 12/20/22 07:59 12/20/22 07:59 12/20/22 08:00 12/18/22 02:00 Laboratory Results - last 24 hr 12/19/22 12:35: Activated Clotting Time 280 H* 12/20/22 09:15: WBC 6.8, RBC 3.66 L, Hgb 12.0 L, Hct 37.3, MCV 101.9 H, MCH 32.9 H, MCHC 32.3, RDW 13.8, Plt Count 175, MPV 8.9, Neut % (Auto) 74.0, Lymph % (Auto) 17.5, [place] % (Auto) 7.2, Eos % (Auto) 1.1, Baso % (Auto) 0.2, Neut # (Auto) 5.0, Lymph # (Auto) 1.2, [place] # (Auto) 0.5, Eos # (Auto) 0.1, Baso # (Auto) 0.0 12/20/22 09:15: Sodium 137, Potassium 3.4 L, Chloride 103, Carbon Dioxide 26, Anion Gap 11.4, BUN 17, Creatinine 0.70, Estimated Creat Clear 56, Estimated GFR 86, Est GFR ( Amer) 104, Glucose 103 H, Calcium 8.7, Total Bilirubin 0.3, AST 84 H, ALT 30, Alkaline Phosphatase 88, Total Protein 7.2, Albumin 3.7, Globulin 3.5 H, Albumin/Globulin Ratio 1.1 I & O for Last 24 hours: Intake & Output 12/17/22 12/18/22 12/19/22 12/20/22 23:59 23:59 23:59 23:59 Intake Total 9.675 / 9.675 1098.675 / 1259.675 241 / 241 240 / 240 Output Total 300 / 300 0 / 0 350 / 350 Balance 9.675 / 9.675 798.675 / 959.675 241 / 241 -110 / -110 Weight 83 lb 12.41 oz 85 lb 1.01 oz 85 lb 88 lb 8 oz Constitutional Constitutional: no acute distress *Routine Respiratory Exam Respiratory: Present CTA bilaterally and symmetric chest movement *Routine Cardiovascular Exam Cardiovascular: Present RRR, Normal S1 and Normal S2 *Routine Abdominal Exam Abdominal: Present soft and normoactive bowel sounds; Absent tenderness *Routine Extremities Exam Extremities: Present full ROM and
[2022-12-20 12:00] VITALS: BP 124/76; PULSE 79; PULSE 80; RESP 22; TEMP 37.2; O2SAT 95
--- NOTE | 2022-12-20 12:59 | HMH.PHAINT1 ---
Pharmacy Intervention Comments: HOME MEDICATION DISCHARGE COMPLETED: -ATORVASTATIN (TAKE AT NIGHT, MAY HAVE MUSCLE CRAMPS/PAIN) -BISOPROLOL FUMARATE (BLOOD PRESSURE MEDICATION TO BE WEARY OF STANDING UP TO FAST AND HYPOTENSION) -CLOPIDOGREL (INCREASED RISK OF BLEEDING AND BRUISING) -IRBESARTAN (BLOOD PRESSURE MEDICATION TO BE WEARY OF STANDING UP TO FAST AND HYPOTENSION) - ASPIRIN 81MG (INCREASED RISK OF BLEEDING AND BRUISING) STOP ASPIRIN 325MG PATIENT HAD NO FURTHER QUESTIONS AT THIS TIME. -ANAHI LOUIS, PHARM STUDENT
--- NOTE | 2022-12-21 13:07 | CARE MANAGER ---
Called and spoke with patient to discuss recent discharge. Patient states that she is doing well, has started new medications prescribed at discharge, and is aware of scheduled f/u appts.
== END 2022-12-20 13:45 | disposition home or self-care (01) | DRG 253 ==
PROVIDERS: Family Medicine; Internal Medicine; Internal Medicine Adolescent Medicine; Nurse Practitioner Critical Care Medicine; Admitting Provider Internal Medicine; PCP Family Medicine; Visit Provider Internal Medicine
PROC: 04H93DZ Insertion of Intraluminal Device into Right Renal Artery, Percutaneous Approach (ICD-10-PCS; principal; 2022-12-19 12:00)
DX: I21.4 Non-ST elevation (NSTEMI) myocardial infarction (principal); I51.81 Takotsubo syndrome; F17.210 Nicotine dependence, cigarettes, uncomplicated; Z95.1 Presence of aortocoronary bypass graft; I70.1 Atherosclerosis of renal artery; I25.110 Atherosclerotic heart disease of native coronary artery with unstable angina pectoris; Z79.899 Other long term (current) drug therapy; E03.9 Hypothyroidism, unspecified; Z86.16 Personal history of COVID-19; I77.1 Stricture of artery; J44.9 Chronic obstructive pulmonary disease, unspecified; I15.0 Renovascular hypertension
CPT/HCPCS: 36252; 36415; 37236; 71045; 80048; 80053; 83735; 83880; 84439; 84443; 84484; 85007; 85025; 85347; 85730; 87636; 93005; 93306; 93458; 99152; C1725; C1769; C1876; C1894; C9803; J1644; J2405; Q9967; U0003; U0005

== ENCOUNTER → 2022-12-28 14:11 | Outpatient (CLI) | payer MEDICAID, SELFPAY ==
[2022-12-28 15:09] LABS: Blood Urea Nitrogen 17 mg/dl (7-17); Estimated Glomerular Filt Rate 74 ml/min (>60); GFR (African American) 89 ML/MIN (>60)
[2022-12-28 15:32] LABS: Hematocrit 29.9 % (37.0-47.0); Hemoglobin 9.6 g/dL (12.2-16.2)
== END ==
PROVIDERS: PCP Family Medicine; Visit Provider Internal Medicine
DX: R10.9 Unspecified abdominal pain (principal); D64.9 Anemia, unspecified
CPT/HCPCS: 36415; 82565; 84520; 85014; 85018

== ENCOUNTER 2022-12-28 16:26 | Emergency (ER) | payer MEDICAID, SELFPAY ==
[2022-12-28 16:27] VITALS: BP 158/86; PULSE 68; RESP 18; TEMP 37; O2SAT 100; BMI 15.0
[2022-12-28 16:47] VITALS: BMI 15.0
--- NOTE | 2022-12-28 16:48 | CT_ITS ---
PROCEDURE INFORMATION: Exam: CT Abdomen And Pelvis With Contrast Exam date and time: 12/28/2022 4:56 PM Age: 57 years old Clinical indication: Abnormal findings; Abnormal lab test; Other: Hgb; Additional info: Drop in hgb after renal stents TECHNIQUE: Imaging protocol: Computed tomography of the abdomen and pelvis with contrast. Radiation optimization: All CT scans at this facility use at least one of these dose optimization techniques: automated exposure control; mA and/or kV adjustment per patient size (includes targeted exams where dose is matched to clinical indication); or iterative reconstruction. Contrast material: ISOVUE; Contrast volume: 75 ml; Contrast route: IV; REPORTING DATA: Count of CT and Cardiac NM exams in prior 12 months: This patient has received 0 known CTs and 0 known cardiac nuclear medicine studies in the 12 months prior to the current study. COMPARISON: CR XR CHEST PORTABLE 12/18/2022 5:46 AM FINDINGS: Lungs: Complete atelectasis of the left lower lobe. Right lower lobe subsolid nodule measuring 7 mm in diameter, axial image 11. Liver: There is diffuse hypoattenuation of the liver compatible with moderate hepatic steatosis. Gallbladder and bile ducts: Solitary hyperattenuating structure measures 4 mm within the gallbladder fossa without wall thickening, or pericholecystic fluid. Pancreas: Normal. No ductal dilation. Spleen: Multiple benign-appearing calcific densities of the spleen. Adrenal glands: Normal. No mass. Kidneys and ureters: Moderate thinning of the renal cortices bilaterally. Stomach and bowel: Unremarkable. No obstruction. No mucosal thickening. Appendix: The appendix is not definitely identified, but there are no primary or secondary CT findings to suggest a diagnosis of acute appendicitis. Intraperitoneal space: Unremarkable. No free air. No significant fluid collection. Vasculature: Endovascular changes compatible with stenting of the right renal artery at its origin with the aorta. No evidence of extravascular contrast. Distal renal artery displays appropriate contrast enhancement. Moderate calcified and noncalcified atherosclerotic disease of the abdominal aorta without aneurysmal dilatation. Lymph nodes: Unremarkable. No enlarged lymph nodes. Urinary bladder: Unremarkable as visualized. Reproductive: Tubal ligation clips identified in the pelvis. Bones/joints: Moderate loss of intervertebral disc space with degenerative changes at lumbar spine. Soft tissues: Normal. IMPRESSION: 1. Endovascular changes compatible with stenting of the right renal artery at its origin with the aorta. No evidence of extravascular contrast. Distal renal artery displays appropriate contrast enhancement. 2. Complete atelectasis of the left lower lobe. Recommend further evaluation with chest CT to identify for possible bronchus obstruction. 3. Right lower lobe subsolid nodule measuring 7 mm in diameter, axial image 11. Recommend CT Chest at 6-12 months to confirm persistence of the nodule, then CT Chest at 3 years and 5 years. (Reference: Michaela) 4. Cholelithiasis without CT evidence of cholecystitis. REFERENCES: Michaela Saenz, et al. Guidelines for Management of Incidental Pulmonary Nodules Detected on CT Images: From the Fleischner Society 2017. Radiology. 2017;284(1):228-243.
[2022-12-28 17:06] LABS: Basophils % 0.4 % (0.1-2.0); Chloride 102 mmol/L (98-107); Eosinophils # 0.1 K/mm3 (0.0-0.4); Eosinophils % 1.7 % (0.1-12.0); Hematocrit 34.6 % (37.0-47.0); Lymphocytes # 1.8 K/mm3 (0.7-4.5); Lymphocytes % 27.4 % (10-50); Mean Corpuscular HGB Conc 31.3 g/dL (31.8-35.4); Mean Corpuscular Hemoglobin 32.5 pg (27.0-31.2); Mean Corpuscular Volume 103.9 fl (81-99); Mean Platelet Volume 8.8 fl (7.4-10.4); Monocytes # 0.2 K/mm3 (0.1-1.0); Monocytes % 3.7 % (1.7-9.3); Neutrophils # 4.3 K/mm3 (1.8-7.8); Neutrophils % 66.8 % (37.0-80.0); Platelet Count 317 K/mm3 (142-424); Potassium 4.2 mmoL/L (3.5-5.1); Red Blood Count 3.33 M/mm3 (4.20-5.40); Red Cell Distribution Width 13.4 % (11.5-17.5); Sodium 141 mmol/L (136-145); White Blood Count 6.4 K/mm3 (4.8-10.8)
[2022-12-28 17:09] LABS: Alanine Aminotransferase 26 U/L (12-78); Albumin Level 4.1 g/dl (3.5-5.0); Albumin/Globulin Ratio 0.9 (1.1-1.8); Alkaline Phosphatase 99 U/L (38-126); Anion Gap 15.2 mEq/L (5-15); Aspartate Amino Transferase 43 U/L (14-36); Bilirubin,Total 0.3 mg/dl (0.2-1.3); Blood Urea Nitrogen 16 mg/dl (7-17); Carbon Dioxide 28 mmol/L (22.0-30.0); Creatinine Clearance Estimated 47 mL/min (50-200); Estimated Glomerular Filt Rate 74 ml/min (>60); GFR (African American) 89 ML/MIN (>60); Globulin 4.6 g/dL (1.3-3.2); Total Protein,Serum 8.7 g/dl (6.3-8.2)
[2022-12-28 17:10] LABS: Calcium 9.3 mg/dl (8.4-10.2); Glucose 93 mg/dl (74-100)
[2022-12-28 17:26] LABS: Hemoglobin 10.8 g/dL (12.2-16.2)
--- NOTE | 2022-12-28 17:29 | HMH.EDRECH ---
Discharge Plan Disposition Patient Disposition: Home, Self-Care Chief Complaint: Back Pain/Injury Prescriptions Prescriptions: No Action fluticasone propion-salmeterol [Advair Diskus] 250-50 mcg/dose blister with device 1 inh inhalation BID levothyroxine 88 mcg tablet 88 mcg PO DAILYDM Patient Comments: TAKE ONE TABLET EVERY DAY trazodone 150 mg tablet 150 mg PO HS albuterol sulfate [Ventolin HFA] 90 mcg/actuation HFA aerosol inhaler 2 puff inhalation QIDP PRN (Reason: Shortness Of Breath) Spiriva with HandiHaler 18 mcg capsule, w/inhalation device 1 cap inhalation DAILY aspirin 81 mg Tablet,Delayed Release (Dr/Ec) 81 mg PO DAILY 30 Days Qty: 30 0RF clopidogrel 75 mg Tablet 75 mg PO DAILY 30 Days Qty: 30 0RF bisoprolol fumarate 5 mg Tablet 10 mg PO DAILY 30 Days Qty: 60 0RF irbesartan 75 mg Tablet 75 mg PO DAILY 30 Days Qty: 30 0RF atorvastatin 80 mg tablet 80 mg PO HS 30 Days Qty: 30 0RF Referrals Follow up/Referrals: Mendez Nunes [Primary Care Provider] - See instructions Clinical Impressions Clinical Impression: Postop check Discharge ED Provider: Surjit Daniel HPI General Stated Complaint: phy ref, hemoglobin dropped Time Seen by Provider: 12/28/22 17:16 History of Present Illness HPI narrative: 57-year-old white female sent to the emergency department for evaluation of a postprocedure hemoglobin drop. The patient recently had a catheterization following PR. She has documented coronary artery disease with several occlusions. But was noted to have a nearly occluded renal artery stenosis which was stented. She subsequently had a drop in her hemoglobin and attempts to obtain preauthorization for imaging to rule out a retroperitoneal hematoma were unsuccessful she was therefore sent to the emergency department to have the necessary procedures performed. The patient is currently asymptomatic is at this point. Her chart is reviewed and she is indeed at very high risk for vascular pathology Related Data Home Medications Medication Instructions Recorded Confirmed albuterol sulfate 90 mcg/actuation 2 puff inhalation QIDP PRN 12/17/22 12/28/22 aerosol inhaler (Ventolin HFA) Shortness Of Breath fluticasone 250 mcg-salmeterol 50 1 inh inhalation BID COPD 12/17/22 12/28/22 mcg/dose blistr powdr for inhalation (Advair Diskus) levothyroxine 88 mcg tablet 88 mcg PO DAILYDM Hypothyroid 12/17/22 12/28/22 tiotropium bromide 18 mcg capsule 1 cap inhalation DAILY COPD 12/17/22 12/28/22 with inhalation device (Spiriva with HandiHaler) trazodone 150 mg tablet 150 mg PO HS Insomnia 12/17/22 12/28/22 Previous Rx's Medication Instructions Recorded aspirin 81 mg tablet,delayed 81 mg PO DAILY 30 days #30 tabs 12/20/22 release atorvastatin 80 mg tablet 80 mg PO HS 30 days #30 tabs 12/20/22 bisoprolol fumarate 5 mg tablet 10 mg PO DAILY 30 days #60 tabs 12/20/22 clopidogrel 75 mg tablet 75 mg PO DAILY 30 days #30 tabs 12/20/22 irbesartan 75 mg tablet 75 mg PO DAILY 30 days #30 tabs 12/20/22 Allergies Allergy/AdvReac Type Severity Reaction Status Date / Time sulfamethoxazole Allergy Verified 12/28/22 15:12 [From Bactrim] trimethoprim [From Bactrim] Allergy Verified 12/28/22 15:12 [facility] Disclaimer: The information contained in this section may have been updated after the patient was seen, as this information can be updated by other users. Medical History COPD (chronic obstructive pulmonary disease) Coronary artery disease involving coronary bypass graft Hemorrhoid History of COVID-19 Hypothyroid Surgical History History of cardiac catheterization Social History Smoking Status: Current every day smoker alcohol intake: never current occupati
[2022-12-28 17:30] VITALS: BP 170/89; PULSE 68; O2SAT 98
[2022-12-28 18:00] VITALS: BP 154/79; PULSE 65; O2SAT 92
[2022-12-28 18:33] VITALS: BP 154/79; PULSE 65; RESP 20; TEMP 37; O2SAT 98
== END 2022-12-28 18:35 | disposition home or self-care (01) ==
PROVIDERS: Emergency Provider Emergency Medicine; PCP Family Medicine
DX: D64.9 Anemia, unspecified (principal); I25.810 Atherosclerosis of coronary artery bypass graft(s) without angina pectoris; I25.2 Old myocardial infarction; J44.9 Chronic obstructive pulmonary disease, unspecified; E03.9 Hypothyroidism, unspecified; F17.200 Nicotine dependence, unspecified, uncomplicated; Z95.828 Presence of other vascular implants and grafts
CPT/HCPCS: 74177; 80053; 85025; 86850; 99284; 99285; Q9967

== ENCOUNTER 2024-08-22 07:52 | Outpatient (CLI) | payer OTHER, SELFPAY ==
--- NOTE | 2024-08-22 07:53 | US_ITS ---
FINAL REPORT CLINICAL HISTORY: claudication, dicoloration, numbness BLE s, purple toes, very cold feet, smoker, HTN, HLD, old HI, CAD COMPARISON: None FINDINGS: LOWER EXTREMITY SEGMENTAL PRESSURE MEASUREMENTS FINDINGS: Pressure indices are as follows: RIGHT LOWER EXTREMITY: Thigh: 1.04 Calf: 1.09 Ankle, posterior tibial artery: 1.21 Ankle, dorsalis pedis: 1.12 Toe: 0.55 Comments: Normal LEFT LOWER EXTREMITY: Thigh: 1.07 Calf: 1.19 Ankle, posterior tibial artery: 1.20 Ankle, dorsalis pedis: 1.02 Toe: 0.64 Comments: Normal IMPRESSION: No evidence of significant peripheral vascular disease. Reviewed, Interpreted and Dictated by Saurabh George MD Transcribed by Dionne Matias Authenticated and . [facility]
--- NOTE | 2024-08-22 07:53 | CA_ITS ---
APPROVED REPORT EXAM: Comprehensive 2D, Doppler, and color-flow Echocardiogram Senior Living Advisor: Adrienne Estrada CRT Ht: 5 ft 3 in Wt: 90lbs BSA: 1.38 BP: 150/82 mmHg Indications: CAD, Hyperlipidemia, Hypertension/HDD, Smoker, stents 2007, CABG 2013, Renal artery stenosis, CM, Takotsubo Echo 50-55% 12-19-22 2D Dimensions Left Atrium 3.61 cm LVEF (Wheeler's) 45.80 % LVOT 1.70 cm (M/F) 1.5-2.5 LV Volume 92.80 mL LA Volume 31.50 mL LA Volume Index 22.80 mL/m2 (M/F) 16-34 EF AP4 49.50 % EF AP2 42.1 % EF BP 45.8 % GL Strain -15.8 % M-Mode Dimensions RVDd 2.06 cm (0.9-2.6) LVDd 4.41 cm (3.5-5.7) Ao Diam 2.75 cm (2.0-3.7) LVDs 3.13 cm (3.5-5.7) IVSd 0.82 cm (0.6-1.1) PWd 0.91 cm (0.6-1.1) EF (Teich) 56.00% FS 29.00% EDV (Teich) 88.20 mL TAPSE 1.97 (<1.7) ESV (Teich) 38.80 mL LV Diastology E Decel Time 157 (160-240 msec) E/A Ratio 1.71 MED E' 7.0 (>= 7 cm/sec) MED A' 9.20 cm/s E'/MED E' Ratio 17.79 (<= 14) LAT A' 9.30 cm/s Aortic Valve AoV Peak Triston. 162.0 (50-130 cm/s) AI PHT 522.00 ms AO Peak GR. 10.50 mmHg Mitral Valve MV E Max Tritson. 124.0 (40-130 cm/s) MV A Velocity 73.0 (40-130 cm/s) E/A Ratio 1.71 MV Decel. Time 157 (160-240 ms) Tricuspid Valve TR P. Velocity 212.00 cm/s RAP Estimate 10.00 mmHg RVSP 27.90 mmHg Left Ventricle The left ventricle is normal size. The left ventricular systolic function is normal. The left ventricular ejection fraction is within the normal range. There is increased LV wall thickness. There is normal LV segmental wall motion. The left ventricular diastolic function is normal. LVEF is 55%. Right Ventricle The right ventricle is normal size. Right ventricle is mildly hypokinetic. Atria The left atrium is mildly dilated. Right atrium is mildly dilated. There is no Doppler evidence of interatrial shunt. Aortic Valve The aortic valve is mildly thickened. There is no aortic valvular stenosis. Moderate aortic regurgitation. Mitral Valve The mitral valve is normal in structure. No evidence of mitral valve stenosis. Moderate mitral regurgitation. Tricuspid Valve Tricuspid valve is grossly normal in structure and function. Mild tricuspid regurgitation. RVSP is 20-25 mmHg. Pulmonic Valve The pulmonary valve is normal in structure. Trace pulmonic regurgitation. Great Vessels The aortic root is normal in size. IVC is normal in size and collapses >50% with inspiration. Pericardium There is no pericardial effusion. Other Information Study Quality: Fair Conclusion Normal LV systolic function. Normal RV size with mild reduction in RV function. Biatrial dilation. Moderate AI. Moderate MR. Mild TR. Electronically signed by : Brittanie Vega MD 08/29/2024 23:15:28
== END 2024-08-22 23:59 | disposition home or self-care (01) ==
LOC: RT 07:52
PROVIDERS: PCP Family Medicine; Visit Provider Nurse Practitioner Family
DX: I51.7 Cardiomegaly (principal); I51.81 Takotsubo syndrome; I73.9 Peripheral vascular disease, unspecified; R20.0 Anesthesia of skin; R20.2 Paresthesia of skin; L81.9 Disorder of pigmentation, unspecified
CPT/HCPCS: 93306; 93923